=== PATIENT | female | born 1975 ===

== ENCOUNTER 2020-11-26 08:25 | Day surgery (SDC) | payer OTHER ==
[~2020-11-26] VITALS: Ht 172.7 cm; Wt 66.7 kg
[2020-11-26] MEDS ORDERED: fentaNYL citrate 0.05 MG/ML VIAL ONE (11:26)
[2020-11-26] MEDS ORDERED: LIDOCAINE 2% 100 MG/5 ML UJET TP ONE (11:26)
[2020-11-26] MEDS ORDERED: MIDAZOLAM 5 MG/5 ML VIAL ONE (11:26)
[2020-11-26] MEDS ORDERED: fentaNYL citrate 0.05 MG/ML VIAL IVP ONE (15:35)
== END 2020-11-26 13:25 | disposition home or self-care (01) ==
LOC: MDS 08:25 → MFCC 10:08 → MDS 13:25
PROVIDERS: ATTEND Internal Medicine Gastroenterology
DX: Z12.11 Encounter for screening for malignant neoplasm of colon (principal); Z86.010 Personal history of colon polyps; Z80.0 Family history of malignant neoplasm of digestive organs
CPT/HCPCS: 45378; J2250; J3010

== ENCOUNTER 2023-10-29 18:40 | Emergency (ER) | payer OTHER ==
[~2023-10-29] VITALS: Ht 172.7 cm; Wt 73.5 kg
[2023-10-29 18:42] VITALS: BP 119/42; PULSE 70; RESP 16; TEMP 97.6; O2SAT 98
[2023-10-29 19:00] VITALS: BP 119/42; PULSE 70; RESP 16; TEMP 97.6
[2023-10-29 19:20] VITALS: O2SAT 98
[2023-10-29] MEDS: MECLIZINE 25 MG TAB PO ONE (19:43)
[2023-10-29] MEDS: diazePAM 5 MG TAB PO ONE (20:32)
[2023-10-29 21:31] LABS: BASOPHILS # (AUTO) 0.1 K/uL (0.00-0.22); BASOPHILS % (AUTO) 0.9 % (0.0-2.0); EOSINOPHILS # (AUTO) 0.4 K/uL (0-0.4); EOSINOPHILS % (AUTO) 6.1 % (0.0-4.0); HEMATOCRIT 39.7 % (36-48); HEMOGLOBIN 13.6 g/dL (12.0-16.0); LYMPHOCYTES # (AUTO) 1.7 K/uL (2.5-16.5); LYMPHOCYTES % (AUTO) 28.3 % (20.5-51.1); MEAN CORPUSCULAR HEMOGLOBIN 30 pg (27-31); MEAN CORPUSCULAR HGB CONC 34 g/dL (33-37); MEAN CORPUSCULAR VOLUME 88.1 fL (80-94); MONOCYTES # (AUTO) 0.5 K/uL (0.8-1.0); MONOCYTES % (AUTO) 8.7 % (1.7-9.3); NEUTROPHILS # (AUTO) 3.4 K/uL (1.8-7.7); PLATELET COUNT (AUTO) 204 K/uL (140-450); RED CELL DISTRIBUTION WIDTH 13.7 % (11.6-13.7); WHITE BLOOD COUNT (AUTO) 6.2 K/uL (4.8-10.8)
[2023-10-29 21:39] LABS: ANION GAP 13.4 (8-16); CALCIUM 9.1 mg/dL (8.5-10.1); CARBON DIOXIDE 27.5 mmol/L (21-32); CREATININE 0.7 mg/dL (0.6-1.3); POTASSIUM 3.9 mmol/L (3.5-5.1)
[2023-10-30] MEDS ORDERED: MECL-303 PO (00:04)
[2023-10-30] MEDS ORDERED: ONDA-188 PO (00:04)
== END 2023-10-30 00:15 | disposition home or self-care (01) ==
LOC: MED 18:40
DX: R42 Dizziness and giddiness (principal); R20.0 Anesthesia of skin; R11.2 Nausea with vomiting, unspecified; Z98.890 Other specified postprocedural states
CPT/HCPCS: 36415; 70496; 70498; 80048; 85025; 99285; J8597; Q9967

== ENCOUNTER 2023-12-10 10:50 | Inpatient (IN) | payer OTHER ==
[~2023-12-10] VITALS: Ht 172.7 cm; Wt 83.0 kg
[~2023-12-10 10:50] MED LIST: MECL-303 PO; ONDA-188 PO
[2023-12-10 11:34] VITALS: BP 85/43; PULSE 118; RESP 22; TEMP 100.2; O2SAT 97
[2023-12-10 12:27] LABS: BASOPHILS % (AUTO) 0.3 % (0.0-2.0); HEMATOCRIT 31.6 % (36-48); HEMOGLOBIN 10.7 g/dL (12.0-16.0); LYMPHOCYTES # (AUTO) 0.3 K/uL (2.5-16.5); LYMPHOCYTES % (AUTO) 1.9 % (20.5-51.1); MEAN CORPUSCULAR HEMOGLOBIN 30 pg (27-31); MEAN CORPUSCULAR HGB CONC 34 g/dL (33-37); MEAN CORPUSCULAR VOLUME 88.5 fL (80-94); MONOCYTES # (AUTO) 0.7 K/uL (0.8-1.0); NEUTROPHILS # (AUTO) 12.9 K/uL (1.8-7.7); NEUTROPHILS % (AUTO) 92.8 % (42.2-75.2); PLATELET COUNT (AUTO) 344 K/uL (140-450); RED BLOOD CELL COUNT(AUTO) 3.57 MIL/uL (4.20-5.40); RED CELL DISTRIBUTION WIDTH 14.6 % (11.6-13.7); WHITE BLOOD COUNT (AUTO) 13.9 K/uL (4.8-10.8)
[2023-12-10 12:37] LABS: ANION GAP 10.8 (8-16); CALCIUM 8.5 mg/dL (8.5-10.1); CARBON DIOXIDE 26.8 mmol/L (21-32); CREATININE 0.7 mg/dL (0.6-1.3); POTASSIUM 3.6 mmol/L (3.5-5.1)
[2023-12-10 12:40] LABS: INR 1.11 (0.8-1.2); PARTIAL THROMBOPLASTIN TIME 29.1 secs (22-35.6); PROTHROMBIN TIME 11.6 secs (10.8-13.4)
[2023-12-10 12:47] LABS: ALANINE AMINOTRANSFERASE 28 U/L (12-78); ALBUMIN 3.3 g/dL (3.4-5.0); ALKALINE PHOSPHATASE 117 U/L (50-136); ASPARTATE AMINOTRANSFERASE 18 U/L (15-37); BILIRUBIN,DIRECT 0.2 mg/dL (0.0-0.3); CREATINE KINASE, TOTAL 30 U/L (26-192); TOTAL BILIRUBIN 0.7 mg/dL (0.0-1.0)
[2023-12-10] MEDS: NACL 0.9% 2,000 ML IV ONE ×2 (12:48→19:55)
[2023-12-10] MEDS: KETOROLAC 30 MG/ML VIAL IVP ONE (12:48)
[2023-12-10 13:01] LABS: TOTAL PROTEIN, SERUM 6.3 g/dL (6.4-8.2)
[2023-12-10] MEDS ORDERED: PIPERACILLIN/TAZOBACTAM 3.375 GM VIAL IV ONE (13:12)
[2023-12-10 13:21] LABS: BILIRUBIN,URINE 1+ (NEGATIVE); BLOOD, URINE TRACE-L (NEGATIVE); LEUKOCYTE ESTERASE ,URINE NEGATIVE (NEGATIVE); NITRITE, URINE NEGATIVE (NEGATIVE); PROTEIN,URINE 1+ (NEGATIVE); UGLUCOSE NEGATIVE (NEGATIVE); UROBILINOGEN,URINE 0.2 EU/dL (0.2 - 1)
[2023-12-10 13:23] LABS: APPEARANCE,URINE SLIGHTLY HAZY (CLEAR); COLOR,URINE ORANGE (YELLOW)
[2023-12-10] MEDS: PIPERACILLIN/TAZOBACTAM 3.375 GM in DEXTROSE 5% 50 ML IV ONE (13:27)
[2023-12-10 13:31] LABS: BACTERIA,URINE FEW /HPF (None Seen); ICTOTEST NEGATIVE (NEGATIVE); SQUAMOUS EPITHELIAL CELL,UR 4-10 (MOD) /LPF (0-3 (FEW)); WBC,URINE 0-5 /HPF (0-5)
[2023-12-10] MEDS ORDERED: KCL 20 MEQ IN 100 mL PREMIX 200 ML IV PRN (15:10)
[2023-12-10] MEDS ORDERED: MORPHINE SULFATE 4 MG/ML SYR IVP PRN (15:10)
[2023-12-10] MEDS ORDERED: POTASSIUM CHLORIDE 10 MEQ TABER PO PRN (15:10)
[2023-12-10] MEDS ORDERED: VANCOMYCIN PER PHARMACY MC PRN (15:15)
[2023-12-10] MEDS: MIDODRINE 5 MG TAB PO SCH (16:01)
[2023-12-10] MEDS: ACETAMINOPHEN 325 MG TAB PO ONE (16:02)
[2023-12-10] MEDS: NACL 0.9% 1,000 ML IV SCH (16:16)
[2023-12-10] MEDS: fentaNYL citrate 0.05 MG/ML VIAL IVP ONE (16:16)
[2023-12-10] MEDS: VANCOMYCIN 1.25GM PREMIX 250 ML IV SCH (17:18)
[2023-12-10] MEDS: NACL 0.9% 2,000 ML IV SCH (20:05)
[2023-12-10] MEDS ORDERED: ALBUMIN HUMAN 5 % 500 ML IV ONE (20:38)
[2023-12-10] MEDS: ALBUMIN HUMAN 5 % 500 ML IV SCH (20:56)
[2023-12-10] MEDS: metroNIDAZOLE 500 MG/NS PREMIX 100 ML IV SCH (21:00)
[2023-12-11] VITALS (14 sets, daily range): BP systolic 77–103; BP diastolic 36–64; PULSE 53–110; RESP 16–20; TEMP 96.7–99.5; O2SAT 90–98
[2023-12-11] MEDS: ACETAMINOPHEN 325 MG TAB PO PRN (04:29)
[2023-12-11 08:24] LABS: ALBUMIN 2.7 g/dL (3.4-5.0); ANION GAP 12.9 (8-16); CALCIUM 7.6 mg/dL (8.5-10.1); CARBON DIOXIDE 20.1 mmol/L (21-32); CREATININE 0.7 mg/dL (0.6-1.3); MAGNESIUM 1.6 mg/dL (1.8-2.4); TOTAL BILIRUBIN 0.7 mg/dL (0.0-1.0); TOTAL PROTEIN, SERUM 5.1 g/dL (6.4-8.2)
[2023-12-11 11:10] LABS: BASOPHILS # (AUTO) 0.1 K/uL (0.00-0.22); BASOPHILS % (AUTO) 1.3 % (0.0-2.0); EOSINOPHILS % (AUTO) 0.1 % (0.0-4.0); HEMATOCRIT 24.1 % (36-48); HEMOGLOBIN 8.2 g/dL (12.0-16.0); LYMPHOCYTES # (AUTO) 0.3 K/uL (2.5-16.5); LYMPHOCYTES % (AUTO) 3.2 % (20.5-51.1); MEAN CORPUSCULAR HEMOGLOBIN 30 pg (27-31); MEAN CORPUSCULAR HGB CONC 34 g/dL (33-37); MEAN CORPUSCULAR VOLUME 88.6 fL (80-94); MONOCYTES # (AUTO) 0.6 K/uL (0.8-1.0); MONOCYTES % (AUTO) 5.8 % (1.7-9.3); NEUTROPHILS # (AUTO) 9.1 K/uL (1.8-7.7); NEUTROPHILS % (AUTO) 89.6 % (42.2-75.2); PLATELET COUNT (AUTO) 273 K/uL (140-450); RED BLOOD CELL COUNT(AUTO) 2.72 MIL/uL (4.20-5.40); RED CELL DISTRIBUTION WIDTH 14.7 % (11.6-13.7); WHITE BLOOD COUNT (AUTO) 10.1 K/uL (4.8-10.8)
[2023-12-11] MEDS: HYDROcodone/APAP 5/325 MG 1 TAB TAB PO PRN (14:49)
[2023-12-11] MEDS: ONDANSETRON 4 MG/2 ML VIAL IVP PRN (14:49)
[2023-12-11] MEDS: ALBUMIN HUMAN 25% 100 ML IV SCH (16:17)
[2023-12-11] MEDS: MIDODRINE 5 MG TAB PO SCH (16:17)
[2023-12-11] MEDS ORDERED: POTASSIUM CHLORIDE 40 MEQ in NACL 0.9% 250 ML IV SCH (17:35)
[2023-12-11] MEDS: POTASSIUM CHLORIDE 40 MEQ, LIDOCAINE 1% 25 MG in NACL 0.9% 250 ML IV SCH (18:11)
[2023-12-11 18:33] LABS: BASOPHILS # (AUTO) 0.1 K/uL (0.00-0.22); BASOPHILS % (AUTO) 0.6 % (0.0-2.0); EOSINOPHILS # (AUTO) 0.1 K/uL (0-0.4); EOSINOPHILS % (AUTO) 1.3 % (0.0-4.0); HEMATOCRIT 22.6 % (36-48); HEMOGLOBIN 7.7 g/dL (12.0-16.0); LYMPHOCYTES # (AUTO) 0.7 K/uL (2.5-16.5); LYMPHOCYTES % (AUTO) 6.6 % (20.5-51.1); MEAN CORPUSCULAR HEMOGLOBIN 30 pg (27-31); MEAN CORPUSCULAR HGB CONC 34 g/dL (33-37); MEAN CORPUSCULAR VOLUME 88.2 fL (80-94); MONOCYTES # (AUTO) 0.5 K/uL (0.8-1.0); NEUTROPHILS # (AUTO) 9.3 K/uL (1.8-7.7); NEUTROPHILS % (AUTO) 86.5 % (42.2-75.2); PLATELET COUNT (AUTO) 261 K/uL (140-450); RED BLOOD CELL COUNT(AUTO) 2.56 MIL/uL (4.20-5.40); RED CELL DISTRIBUTION WIDTH 14.5 % (11.6-13.7); WHITE BLOOD COUNT (AUTO) 10.8 K/uL (4.8-10.8)
[2023-12-11 18:55] LABS: MAGNESIUM 1.7 mg/dL (1.8-2.4); PHOSPHORUS 1.7 mg/dL (2.5-4.9)
[2023-12-11 18:59] LABS: LACTIC ACID 1.6 mmol/L (0.4-2.0)
[2023-12-11 19:03] LABS: ANION GAP 13.4 (8-16); CARBON DIOXIDE 21.1 mmol/L (21-32); CREATININE 0.6 mg/dL (0.6-1.3); POTASSIUM 3.5 mmol/L (3.5-5.1)
[2023-12-11] MEDS ORDERED: NOREPINEPHRINE 4 MG in DEXTROSE 5% 250 ML IV PRN (19:20)
[2023-12-11] MEDS: HYDROCORTISONE NA SUCC 100 MG/2 ML VIAL IV SCH (20:00)
[2023-12-11] MEDS: NACL 0.9% 500 ML IV ONE (20:01)
[2023-12-11] MEDS ORDERED: CALCIUM GLUC 1 GM/50 mL NS BAG 50 ML IV SCH (21:00)
[2023-12-11 21:02] LABS: BLOOD GAS BASE EXCESS -7.5 mmol/L (-2.0-2.0); BLOOD GAS HCO3 15.4 mmol/L (22-26); BLOOD GAS PCO2 20.2 mmHg (35-45); BLOOD GAS PO2 94.2 mmHg (75-100)
[2023-12-11 21:03] LABS: BLOOD GAS O2 SAT% 98.4 % (92.0-98.5)
[2023-12-11] MEDS ORDERED: FUROSEMIDE 20 MG/2 ML VIAL IVP PRN ×2 (21:05→21:10)
[2023-12-11] MEDS ORDERED: ALBUMIN HUMAN 25% 100 ML IV SCH (21:15)
[2023-12-11] MEDS: SODIUM PHOS / POTASSIUM PHOS 1 PKT PDR PO SCH (21:27)
[2023-12-11] MEDS: MAGNESIUM OXIDE 400 MG TAB PO PRN (21:27)
[2023-12-11] MEDS: CALCIUM GLUC 1 GM/50 mL NS BAG 50 ML IV SCH (22:16)
[2023-12-12] VITALS (15 sets, daily range): BP systolic 93–128; BP diastolic 43–73; PULSE 37–85; RESP 16–22; TEMP 97–98.4; O2SAT 93–99
[2023-12-12] MEDS ORDERED: PIPERACILLIN/TAZOBACTAM 3.375 GM VIAL IV ONE ×2 (00:27→04:34)
[2023-12-12] MEDS: PIPERACILLIN/TAZOBACTAM 3.375 GM in DEXTROSE 5% 50 ML IV SCH (00:37)
[2023-12-12] MEDS: ALBUMIN HUMAN 25% 100 ML IV SCH (03:35)
[2023-12-12] MEDS: FUROSEMIDE 100 MG/10 ML VIAL IVP ONE (03:40)
[2023-12-12 04:34] LABS: BASOPHILS % (AUTO) 0.2 % (0.0-2.0); EOSINOPHILS % (AUTO) 0.2 % (0.0-4.0); HEMATOCRIT 25.7 % (36-48); HEMOGLOBIN 8.8 g/dL (12.0-16.0); LYMPHOCYTES # (AUTO) 0.5 K/uL (2.5-16.5); MEAN CORPUSCULAR HEMOGLOBIN 30 pg (27-31); MEAN CORPUSCULAR HGB CONC 34 g/dL (33-37); MEAN CORPUSCULAR VOLUME 87.9 fL (80-94); MONOCYTES # (AUTO) 0.4 K/uL (0.8-1.0); MONOCYTES % (AUTO) 3.5 % (1.7-9.3); NEUTROPHILS # (AUTO) 9.6 K/uL (1.8-7.7); NEUTROPHILS % (AUTO) 91.1 % (42.2-75.2); PLATELET COUNT (AUTO) 314 K/uL (140-450); RED BLOOD CELL COUNT(AUTO) 2.92 MIL/uL (4.20-5.40); RED CELL DISTRIBUTION WIDTH 14.9 % (11.6-13.7); WHITE BLOOD COUNT (AUTO) 10.5 K/uL (4.8-10.8)
[2023-12-12 04:49] LABS: ANION GAP 16.1 (8-16); CALCIUM 8.5 mg/dL (8.5-10.1); CARBON DIOXIDE 18.8 mmol/L (21-32); CREATININE 0.7 mg/dL (0.6-1.3); POTASSIUM 3.9 mmol/L (3.5-5.1)
[2023-12-12] MEDS: ALBUTEROL SULFATE/IPRATROPIU 3 ML SOL IH PRN (15:58)
[2023-12-13] VITALS: BP 112/50; PULSE 43; PULSE 65; RESP 18; TEMP 97.5; O2SAT 96
[2023-12-13 04:00] VITALS: BP 96/60; PULSE 55; PULSE 68; RESP 18; TEMP 97.1; O2SAT 96
[2023-12-13 08:00] VITALS: BP 103/58; PULSE 45; PULSE 50; RESP 16; TEMP 97.1; TEMP 97.7; O2SAT 98
[2023-12-13 08:30] VITALS: O2SAT 95
[2023-12-13 10:00] VITALS: BP 103/58; PULSE 50; RESP 16; TEMP 97.7; O2SAT 95
[2023-12-13 12:00] VITALS: BP 113/58; PULSE 48; PULSE 98; RESP 16; TEMP 98.2; O2SAT 98
[2023-12-13] MEDS ORDERED: DOXY-690 PO (13:27)
[2023-12-13] MEDS ORDERED: ACET-10509 PO (13:28)
== END 2023-12-13 15:43 | disposition home or self-care (01) | DRG 720 ==
LOC: MED 10:50 → MMU 15:12 → MIC 12-11 19:50 → MMU 12-12 11:28
PROVIDERS: ADMIT Student in an Organized Health Care Education/Training Program; ATTEND Student in an Organized Health Care Education/Training Program
DX: A41.9 Sepsis, unspecified organism (principal); R65.21 Severe sepsis with septic shock; L76.82 Other postprocedural complications of skin and subcutaneous tissue; D62 Acute posthemorrhagic anemia; L03.317 Cellulitis of buttock; Y83.8 Other surgical procedures as the cause of abnormal reaction of the patient, or of later complication, without mention of misadventure at the time of the procedure; R00.1 Bradycardia, unspecified; L03.818 Cellulitis of other sites; Z79.899 Other long term (current) drug therapy
CPT/HCPCS: 36415; 71045; 80048; 80053; 80076; 80202; 81001; 82550; 82553; 83605; 83735; 83874; 83880; 84100; 84484; 85025; 85610; 85730; 86886; 86900; 86901; 87040; 87081; 87086; 93005; 94640; 96361; 96365; 96375; 99285; A4649; J0610; J0696; J1644; J1720; J1885; J1940; J2001; J2405; J2543; J3010; J3372; J3480; J3490; J7030; J7060; P9041; P9046